=== PATIENT | female | born 1935 ===

== ENCOUNTER → 2023-08-23 09:34 | Outpatient (REF) | payer OTHER, SELFPAY ==
[2023-08-23 12:10] LABS: HDL Cholesterol 41 mg/dl; LDL Cholesterol, Calculated 90 mg/dl; Total Cholesterol 152 mg/dl (50-199); Triglyceride 108 mg/dl (10-149); Very Low Density Lipoprotein 21 mg/dl (0-30)
== END ==
LOC: OLABN 09:34
PROVIDERS: ATTENDING PHYSICIAN Student in an Organized Health Care Education/Training Program
DX: E78.5 Hyperlipidemia, unspecified (principal)
CPT/HCPCS: 36415; 80061